=== PATIENT | male | born 1955 | race Caucasian/White ===

== ENCOUNTER 2024-06-26 15:11 | Outpatient (CLI) | payer MEDICARE, MEDICAID ==
[~2024-06-26 15:11] MED LIST: ASPI-529 PO; ATOR40TA71 PO; CLOP75TA34 PO; MEGE20TA3 PO
== END 2024-06-26 23:59 | disposition home or self-care (01) ==
LOC: VAS 15:11
PROVIDERS: ATTEND Surgery
DX: Z98.890 Other specified postprocedural states (principal)
CPT/HCPCS: 93880